=== PATIENT | male | born 1975 | race Caucasian/White ===

== ENCOUNTER 2019-06-24 08:58 | Emergency (ER) | payer SELFPAY ==
[~2019-06-24] VITALS: Ht 193 cm; Wt 96.8 kg
[2019-06-24 09:01] VITALS: Ht 193 cm; Wt 96.8 kg
[2019-06-24] MEDS ORDERED: MOBIC7.5 MG PO (09:03)
[2019-06-24] MEDS ORDERED: LIORESAL 10 MG10 MG PO (09:04)
[2019-06-24] MEDS ORDERED: HYDROCODON-ACE1 EA10 PO (09:04)
[2019-06-24] MEDS ORDERED: ROBAXIN500 MG PO (10:24)
[2019-06-24] MEDS ORDERED: ULTRAM50 MG PO (10:24)
[2019-06-24 10:37] VITALS: BP 142/86
== END 2019-06-24 10:38 | disposition home or self-care (01) ==
LOC: D.ER 08:58
DX: S46.012S Strain of muscle(s) and tendon(s) of the rotator cuff of left shoulder, sequela (principal); X58.XXXS Exposure to other specified factors, sequela; F17.210 Nicotine dependence, cigarettes, uncomplicated